=== PATIENT | male | born 1950 | race Caucasian/White ===

== ENCOUNTER → 2024-07-08 08:42 | Outpatient (REF) | payer OTHER, SELFPAY | LOC: RCS 08:42 | PROVIDERS: ATTENDING PHYSICIAN Internal Medicine | DX: Z00.00 Encounter for general adult medical examination without abnormal findings (principal); I10 Essential (primary) hypertension; E11.36 Type 2 diabetes mellitus with diabetic cataract; R94.31 Abnormal electrocardiogram [ECG] [EKG]; I45.10 Unspecified right bundle-branch block; E66.9 Obesity, unspecified | CPT/HCPCS: 93017; 93306 ==